=== PATIENT | male | born 1975 | race Caucasian/White ===

== ENCOUNTER → 2018-02-18 | Outpatient (CLI) | payer BC ==
--- NOTE | 2018-02-18 20:11 | US ---
EXAMINATION TYPE: US venous doppler duplex LE BI DATE OF EXAM: 02/18/2018 7:23 PM COMPARISON: NONE CLINICAL HISTORY: R60.0 localized edema. Right leg edema SIDE PERFORMED: Bilateral TECHNIQUE: The lower extremity deep venous system is examined utilizing real time linear array sonog niyah with graded compression, doppler sonography and color-flow sonography. VESSELS IMAGED: External Iliac Vein (EIV) Common Femoral Vein Deep Femoral Vein Greater Saphenous Vein * Femoral Vein Popliteal Vein Small Saphenous Vein * Proximal Calf Veins (* superficial vessels) Right Leg: Negative for DVT Left Leg: Negative for DVT No evidence of DVT bilateral legs. IMPRESSION: Negative exam. No evidence of deep venous thrombosis in both legs.
== END | disposition home or self-care (01) ==
LOC: RADUSMAIN 18:32
PROVIDERS: ATTEND Family Medicine
DX: R60.0 Localized edema (principal)
CPT/HCPCS: 93970

== ENCOUNTER → 2018-06-27 | Outpatient (CLI) | payer BC ==
[2018-06-27 11:13] LABS: ALT 98 U/L (21-72); AST 52 U/L (17-59); Albumin 4.4 g/dL (3.5-5.0); Alkaline Phosphatase 72 U/L (38-126); Anion Gap 8 mmol/L; Blood Urea Nitrogen 17 mg/dL (9-20); Calcium 9.6 mg/dL (8.4-10.2); Carbon Dioxide 26 mmol/L (22-30); Chloride 106 mmol/L (98-107); Cholesterol 228 mg/dL (<200); Glucose 103 mg/dL (74-99); HDL Cholesterol 35 mg/dL (40-60); LDL Cholesterol,Calculated 138 mg/dL (0-99); Potassium 4.7 mmol/L (3.5-5.1); Sodium 140 mmol/L (137-145); Total Bilirubin 1.2 mg/dL (0.2-1.3); Total Protein 7.2 g/dL (6.3-8.2); Triglycerides 274 mg/dL (<150)
== END ==
LOC: LABWHC1 09:35
PROVIDERS: ATTEND Internal Medicine Interventional Cardiology
DX: E78.2 Mixed hyperlipidemia (principal)
CPT/HCPCS: 36415; 80053; 80061

== ENCOUNTER → 2018-07-11 | Outpatient (CLI) | payer BC ==
--- NOTE | 2018-07-11 20:18 | CONS ---
CONSULTATION DATE OF SERVICE: 07/11/2018 This patient is a 43-year-old gentleman who has been evaluated in the sleep center for possible obstructive sleep apnea-hypopnea syndrome. HISTORY OF PRESENT ILLNESS/SLEEP-WAKE EVALUATION: Patient's usual sleep schedule on working days is from 10 p.m. until 3:30 a.m. and on weekends from 11 p.m. until between 5 and 7 a.m. He usually has no problems with falling asleep. No TV in bedroom. He sleeps on the side position with snoring and witnessed episodes of stopped breathing during sleep. Patient wakes up from sleep 3 times with heartburn and sweating and 2 times with nocturia at night. In the morning he wakes up tired, falling asleep during the day. He has a problem with concentration, irritability and episodes of depression. [place] Sleepiness Scale is extremely high at 24. No history of hypnagogic hallucinations, sleep paralysis or cataplexy. PAST MEDICAL HISTORY: Positive for low testosterone level, which was in the range of about 120 mg in October of 2017; acid reflux. PAST SURGICAL HISTORY: 1. Right femur fracture in 2001. 2. Laminectomy at the level L5-S1 in 2008. 3. Status post left-sided neck lipoma removed in 2017. 4. Acid reflux. MEDICATIONS: 1. Fish oil. 2. Testosterone injections every 2 weeks. 3. Prilosec. SOCIAL HISTORY: Positive for smoking up to 2 packs a day; quit in January of 2018. Alcohol consumption occasional. FAMILY HISTORY: Acid reflux, diabetes, cancer. REVIEW OF SYSTEMS: Awakenings from sleep, significant excessive daytime sleepiness, snoring, episodes of stopped breathing during sleep. PHYSICAL EXAMINATION: GENERAL: A pleasant gentleman without distress. VITAL SIGNS: BP 117/74, HR 92, RR 16, height 6 feet 1-1/2 inch, weight 289, body mass index 37.6, temperature 97.2, oxygen saturation 97%. HEENT: PERRLA, EOMI. Evaluation of oropharynx showed tongue protrudes midline. Low position of soft palate. NECK: Supple. No JVD. Thyroid is not palpable. Wide neck; 18-1/2 inches in circumference. LUNGS: Clear to percussion and to auscultation. Good air exchange. No wheezing or rhonchi. HEART: S1, S2 regular. No murmurs, gallops or rubs. ABDOMEN: Obese. EXTREMITIES: No clubbing or cyanosis. FURNACE CLEANER: Awake, alert, and oriented X3. Cranial nerves 2 to 7 intact. There is no fasciculation or atrophy. noted. No focal deficits observed. IMPRESSION: 1. Snoring, witnessed episodes of stopped breathing during sleep, including by anesthesiologist in the hospital during surgery, low position of soft palate, wide neck; obstructive sleep apnea-hypopnea syndrome. 2. Obesity, with body mass index 37.6. 3. Low testosterone level. 4. Acid reflux. 5. Status post right femur fracture in 2001. 6. Status post laminectomy, L5-S1, in 2008. 7. Status post lipoma removed from left side of the neck in 2018. PLAN: 1. Polysomnography for evaluation of patient's breathing during sleep. 2. CPAP/BiPAP titration if sleep study confirms obstructive sleep apnea-hypopnea syndrome. 3. Preferable position during sleep on the side. 4. No driving if patient feels any sleepiness. 5. I will see patient for follow up visit to explain results of testing and following plan. Thank you very much for referring this patient for consultation. Sincerely, Carmelo Marquez MD, PhD, FAASM Diplomat of [employer] Supervisor [facility] [place] MMODL / NICOLÁSN: [id number] /
== END | disposition home or self-care (01) ==
LOC: SLEEP 14:33
PROVIDERS: ATTEND Internal Medicine
DX: Z53.9 Procedure and treatment not carried out, unspecified reason (principal)

== ENCOUNTER → 2018-10-24 | Outpatient (CLI) | payer BC ==
[2018-10-24 16:22] LABS: Albumin 4.3 g/dL (3.80-4.90); Albumin/Globulin Ratio 2.39 (1.60-3.17); Anion Gap 7.7 mmol/L (4.00-12.00); Calcium 9.1 mg/dL (8.7-10.3); Carbon Dioxide 28.3 mmol/L (21.6-31.8); Globulin 1.8 g/dL (1.6-3.3); LDL Cholesterol,Calculated 115.8 mg/dL (0.0-131.0); Potassium 4.5 mmol/L (3.5-5.5); Total Bilirubin 0.8 mg/dL (0.2-1.2); Total Protein 6.1 g/dL (6.2-8.2); VLDL Calculation 47.2 mg/dL (5.00-40.00)
== END | disposition home or self-care (01) ==
LOC: LABWHC1 09:02
PROVIDERS: ATTEND Internal Medicine Interventional Cardiology
DX: E29.1 Testicular hypofunction (principal)
CPT/HCPCS: 36415; 80053; 80061; 82040; 84270; 84403

== ENCOUNTER → 2018-10-29 | Outpatient (CLI) | payer BC ==
--- NOTE | 2018-10-29 11:56 | XR ---
EXAMINATION TYPE: XR shoulder complete LT DATE OF EXAM: 10/29/2018 CLINICAL HISTORY: Left shoulder pain while shoveling with limited range of motion TECHNIQUE: Three views of the left shoulder are obtained. COMPARISON: None. FINDINGS: There is no acute fracture/dislocation evident in the left shoulder. The acromioclavicula r and glenohumeral joint spaces appear within normal limits. Mild acromioclavicular arthropathy is s een on the left with small marginal osteophytes and joint space narrowing. The visualized ribs are in tact and unremarkable. IMPRESSION: There is no acute fracture or dislocation in the left shoulder.
== END | disposition home or self-care (01) ==
LOC: RADXRMAIN 11:27
PROVIDERS: ATTEND Physician Assistant Medical
DX: M25.512 Pain in left shoulder (principal)

== ENCOUNTER → 2018-10-31 | Outpatient (CLI) | payer BC ==
--- NOTE | 2018-10-31 18:00 | PN ---
PROGRESS NOTE DATE OF SERVICE: 10/31/2018 This patient is a 43-year-old gentleman who has been followed in Sleep Center for treatment of obstructive sleep apnea-hypopnea syndrome. Recently the patient had a home sleep apnea test which showed apnea-hypopnea index 17.7 with oxygen desaturation to 77% and then the patient had a CPAP titration. On titration, his respiration was controlled with CPAP pressure of 11 cm of water. Subsequently the patient received his CPAP unit. Today is his first follow-up visit since starting his CPAP. The patient is able to use CPAP equipment every night for the whole night without problems related to mask fitting, pressure or humidification. [place] Sleepiness Scale today is 1 only. I checked his CPAP unit. CPAP pressure of 11 cm of water. Usage is every night; 26/30 nights for more than 4 hours. Average usage is 6.3 hours. Leak is 17 L/minute, which is normal range. Apnea-hypopnea index is only 0.9, which is absolutely perfect. MEDICATIONS: 1. Prilosec. 2. Testosterone. 3. Fish oil. PHYSICAL EXAMINATION: GENERAL: A pleasant patient in no distress. VITAL SIGNS: BP 114/73, HR 88, RR 16, weight 287, temperature 98.3, oxygen saturation at room air 96%. HEENT: PERRLA, EOMI. Evaluation of oropharynx showed tongue protrudes midline. Extremely low position of soft palate. Mallampati IV. NECK: Supple. No JVD. Thyroid is not palpable. LUNGS: Clear to percussion and to auscultation. Good air exchange. No wheezing or rhonchi. HEART: S1, S2 regular. No murmurs, gallops or rubs. ABDOMEN: Slightly obese. EXTREMITIES: No clubbing or cyanosis. CLINICAL PSYCHOLOGY PROFESSOR: Awake, alert, and oriented X3. Cranial nerves 2 to 7 intact. There is no fasciculation or atrophy. noted. No focal deficits observed. IMPRESSION: 1. Moderate obstructive sleep apnea-hypopnea syndrome; apnea-hypopnea index 17.7 with oxygen desaturation to 77%, under full control with CPAP. Patient demonstrated great compliance with treatment, benefitting from treatment. 2. Obesity. 3. Low testosterone level. 4. Acid reflux. 5. Status post right femur fracture in 2001. 6. Status post laminectomy, L5-S1, in 2008. 7. Status post lipoma removed from the neck. PLAN: 1. Patient will continue to use CPAP equipment every night for the whole night. 2. Losing weight. 3. Sleep hygiene with regular time in bed for at least 8 hours. 4. Will maintain all necessary prescriptions for CPAP supplies. 5. No driving if feeling any sleepiness. Thank you very much for allowing me to participate in the management of your patient. Sincerely, Carmelo Marquez MD, PhD, FAASM Diplomat of [employer] [employer] of Internal Medicine Complaint Operator of [facility] [place] MMODL / IJN: [id number] /
== END | disposition home or self-care (01) ==
LOC: SLEEP 14:23
PROVIDERS: ATTEND Internal Medicine
DX: G47.33 Obstructive sleep apnea (adult) (pediatric) (principal); E66.9 Obesity, unspecified; E29.1 Testicular hypofunction; K21.9 Gastro-esophageal reflux disease without esophagitis; Z99.89 Dependence on other enabling machines and devices; Z79.899 Other long term (current) drug therapy; Z87.81 Personal history of (healed) traumatic fracture; Z98.890 Other specified postprocedural states

== ENCOUNTER → 2019-03-18 | Outpatient (CLI) | payer OTHER ==
[2019-03-18 17:52] LABS: T4, Free (Free Thyroxine) 1.2 ng/dL (0.80-1.80)
== END | disposition home or self-care (01) ==
LOC: LABWHC1 08:09
PROVIDERS: ATTEND Internal Medicine
DX: E22.1 Hyperprolactinemia (principal)
CPT/HCPCS: 36415; 82024; 82533; 83001; 83002; 84146; 84305; 84403; 84439; 84443

== ENCOUNTER → 2019-05-13 | Outpatient (CLI) | payer OTHER ==
[2019-05-13 17:42] LABS: Chol/HDL Ratio 5.63; LDL Cholesterol,Calculated 97.8 mg/dL (0.0-131.0); VLDL Calculation 64.2 mg/dL (5.00-40.00)
== END | disposition home or self-care (01) ==
LOC: LABWHC1 06:38
PROVIDERS: ATTEND Internal Medicine Interventional Cardiology
DX: E78.2 Mixed hyperlipidemia (principal)
CPT/HCPCS: 36415; 80061; 84450; 84460

== ENCOUNTER → 2019-08-28 | Outpatient (CLI) | payer OTHER | END | disposition home or self-care (01) | LOC: LABWHC1 10:41 | PROVIDERS: ATTEND Internal Medicine | DX: E22.1 Hyperprolactinemia (principal) | CPT/HCPCS: 36415; 84146 ==

== ENCOUNTER → 2020-06-25 | Outpatient (CLI) | payer BC | END | disposition home or self-care (01) | LOC: LABWHC1 07:09 | PROVIDERS: ATTEND Internal Medicine | DX: E22.1 Hyperprolactinemia (principal) | CPT/HCPCS: 36415; 84146 ==

== ENCOUNTER → 2021-07-13 | Outpatient (CLI) | payer BC ==
--- NOTE | 2021-07-13 17:35 | SFUN ---
SLEEP CENTER FOLLOW UP NOTE DATE OF SERVICE: 07/13/2021 46-year-old gentleman has been followed in Sleep Center for treatment of obstructive sleep apnea-hypopnea syndrome. I did not see patient since October of 2018. The patient continues to use his CPAP equipment every night for the whole night. His nasal pillow mask head gear now is loose. [place] Sleepiness Scale today is 7. I checked his CPAP unit. CPAP pressure is 11 cm of water. old, needs to be changed immediately. For the last month, usage is 24/30 nights and 19/30 nights for more than 4 hours. Leak is 31 L/minute. Apnea-hypopnea index is only 0.4 which is normal. MEDICATIONS: Omeprazole. PHYSICAL EXAMINATION: GENERAL: Patient in no distress. BP 132/78, HR 85, RR 15, height 6 feet 1-1/2 inches, weight 282.4 pounds, temperature 97.4, oxygen saturation at room air 96%. Body mass index 36.7. Extremely low position of soft palate, Mallampati 4. NECK: Supple, no JVD. Thyroid is not palpable. LUNGS: Clear to percussion and to auscultation. Good air exchange. No wheezing or rhonchi. HEART: S1, S2 regular. No murmurs, gallops, or rubs. ABDOMEN: Obese. Soft and nontender. Bowel sounds are present. No organomegaly appreciated. EXTREMITIES: No clubbing or cyanosis. REFERENCE SERVICES HEAD: Awake, alert, and oriented X3. Cranial nerves 2 to 7 intact. There is no fasciculation or atrophy. noted. No focal deficits observed. IMPRESSION: 1. Moderate obstructive sleep apnea-hypopnea syndrome apnea-hypopnea index 17.7. The patient demonstrated borderline compliance with CPAP treatment, benefitting from treatment. Needs to replace his CPAP supplies. 2. Obesity. 3. History of low testosterone level. 4. Acid reflux. 5. Status post right femur fracture in 2001. 6. Status post laminectomy, L5-S1 2008. 7. Status post lipoma removed from the neck. PLAN: 1. I changed the type of the nasal pillows from AirFit P10 to [place] FX medium size. Prescription for all supplies was written and faxed. 2. Patient will continue to use PAP equipment every night for the whole night. 3. Sleep hygiene with regular time in bed for at least 7-1/2 to 8 hours. 4. Precautions related to driving. No driving if feeling sleepiness. 5. I will maintain all necessary prescription for PAP supplies including mask, tube, filters. 6. Watching weight. 7. Follow-up visit in 6 months or earlier if patient has any problems. Carmelo Marquez MD, PhD, FAASM Diplomat of [place] [employer] Specialties Sleep Medicine Board of [place] [employer] of Internal Medicine Revenue Manager of [facility] [place] MMODL / NICOLÁSN: [id number] /
== END ==
LOC: SLEEP 14:18
PROVIDERS: ATTEND Internal Medicine
DX: G47.33 Obstructive sleep apnea (adult) (pediatric) (principal); E66.9 Obesity, unspecified; K21.9 Gastro-esophageal reflux disease without esophagitis; M96.1 Postlaminectomy syndrome, not elsewhere classified; Z87.81 Personal history of (healed) traumatic fracture; Z98.890 Other specified postprocedural states; Z68.36 Body mass index [BMI] 36.0-36.9, adult; Z99.89 Dependence on other enabling machines and devices; Z86.39 Personal history of other endocrine, nutritional and metabolic disease; Z79.899 Other long term (current) drug therapy

== ENCOUNTER → 2021-08-18 | Outpatient (CLI) | payer BC ==
--- NOTE | 2021-08-18 09:15 | NM ---
EXAMINATION TYPE: NM hepatobiliary w EF DATE OF EXAM: 08/18/2021 COMPARISON: NONE HISTORY: R14.0 Abdominal bloating; R10.9 TECHNIQUE: After the intravenous administration of 5.1 mCi Tc 99m Mebrofenin hepatobiliary scintigrap hy is performed. Immediate images post injection. FINDINGS: There is satisfactory initial accumulation of tracer by the liver. The gallbladder is visualized wit hin 12 minutes. The small bowel activity is noted within 60 minutes. At one hour 8 ounces of oral e nsure plus is given to mimic CCK and gallbladder ejection fraction is calculated at 79 %, in the norm al range. Therefore there is no scintigraphic evidence of cystic or common bile duct obstruction to suggest acute cholecystitis or gallbladder dyskinesia. IMPRESSION: Exam is within normal limits.
== END | disposition home or self-care (01) ==
LOC: RADNMMAIN 06:52
PROVIDERS: ATTEND Physician Assistant Medical
DX: R14.0 Abdominal distension (gaseous) (principal); R10.9 Unspecified abdominal pain
CPT/HCPCS: 78226; A9537

== ENCOUNTER → 2021-09-15 | Outpatient (CLI) | payer BC ==
[2021-09-16 06:42] LABS: Gliadin AB IgA, Deaminated NEGATIVE (NEGATIVE); Gliadin AB IgA, Unit 0.3 U/mL; Gliadin AB IgG, Deaminated NEGATIVE (NEGATIVE)
== END | disposition home or self-care (01) ==
LOC: LABWHC1 15:33
PROVIDERS: ATTEND Nurse Practitioner
DX: K21.9 Gastro-esophageal reflux disease without esophagitis (principal); R14.0 Abdominal distension (gaseous); R63.5 Abnormal weight gain; Z83.79 Family history of other diseases of the digestive system
CPT/HCPCS: 36415; 82784; 83516; 86255

== ENCOUNTER → 2022-01-11 | Outpatient (CLI) | payer BC ==
--- NOTE | 2022-01-11 22:12 | SFUN ---
SLEEP CENTER FOLLOW UP NOTE DATE OF SERVICE: 01/11/2022 46-year-old gentleman has been followed in Sleep Center for treatment of obstructive sleep apnea-hypopnea syndrome. Patient continues to use his CPAP equipment every night. Feels now less comfortable as before with the nasal mask. Prefer to go back to nasal pillow mask. [place] Sleepiness Scale is 6, which is normal. I checked his CPAP unit, pressure is 11 cm of water, usage nights 19/ nights for more than 4 hours, average 4.7 hours per night. The patient explained that he sleeps quite short amount of hours. Leak is slightly high at 38 L/minutes but apnea- hypopnea index is totally perfect only 0.5. MEDICATIONS: Omeprazole. PHYSICAL EXAMINATION: GENERAL: Patient in no distress. BP 125/85, HR 82, RR 16, weight 293.4 pounds, temperature 97.4, height 6 feet and 1-1/2 inch. Oxygen saturation at room air 99%. HEENT: PERRLA, EOMI, evaluation of oropharynx showed tongue protrudes midline. NECK: Supple, no JVD. Thyroid is not palpable. LUNGS: Clear to percussion and to auscultation. Good air exchange. No wheezing or rhonchi. HEART: S1, S2 regular. No murmurs, gallops, or rubs. ABDOMEN: Obese. Soft and nontender. Bowel sounds are present. No organomegaly appreciated. EXTREMITIES: No clubbing or cyanosis. PLATFORM CONSULTANT: Awake, alert, and oriented X3. Cranial nerves 2 to 7 intact. There is no fasciculation or atrophy. noted. No focal deficits observed. IMPRESSION: 1. Obstructive sleep apnea-hypopnea syndrome in moderate range. Patient demonstrated good compliance with treatment benefitting from treatment normal respiration on CPAP. 2. History of low testosterone level. 3. Obesity. 4. Acid reflux. 5. Status post right femur fracture in 2001. 6. Status post laminectomy, L5-S1 2008. 7. Status post lipoma removed from the neck. PLAN: 1. The patient would like to go back to nasal pillow mask. I wrote prescription for AirFit P10 medium size. That is what patient prefers. 2. Patient will continue to use PAP equipment every night for the whole night. 3. Sleep hygiene with regular time in bed for at least 7-1/2 to 8 hours. 4. Precautions related to driving. No driving if feeling sleepiness. 5. I will maintain all necessary prescription for PAP supplies including mask, tube, filters. 6. Watching weight. 7. Follow-up visit in 6 months or earlier if patient has any problems. Thank you very much for allowing me to participate in management of your patient. Sincerely, Carmelo Marquez MD, PhD, FAASM Diplomat of [place] [employer] [employer] Specialties Sleep Medicine Board of [place] Board of Internal Medicine Float Operator of [facility] [place] MMODL / NICOLÁSN: [id number] /
== END ==
LOC: SLEEP 15:41
PROVIDERS: ATTEND Internal Medicine
DX: G47.33 Obstructive sleep apnea (adult) (pediatric) (principal); E66.9 Obesity, unspecified; K21.9 Gastro-esophageal reflux disease without esophagitis; Z98.890 Other specified postprocedural states; Z86.39 Personal history of other endocrine, nutritional and metabolic disease; Z87.81 Personal history of (healed) traumatic fracture; Z99.89 Dependence on other enabling machines and devices

== ENCOUNTER → 2022-08-16 | Outpatient (CLI) | payer BC ==
--- NOTE | 2022-08-16 17:13 | P.PN ---
Subjective DATE: 08/16/2022 FOLLOW UP VISIT. Patient with obstructive sleep apnea hypopnea syndrome return to sleep center for follow-up visit. Information from previous visit have been reviewed. Patient is using PAP equipment every night for the whole night, getting PAP supplies in time. The patient does not have significant problems with the mask, PAP unit and humidification. [place] sleepiness scale is 5, which is normal. I checked information from PAP unit. PAP unit pressure 11 cm H2O. Usage is 83 % for more then 4 hours, average 5.5 hours per night. Leak is 19.9 l/m, which is in acceptable range. Apnea Hypopnea Index is only 0.5, which is normal. MEDICATIONS: None During physical exam: GENERAL: A pleasant patient without any distress. VITAL SIGNS: BP 124/77, HR 87, RR 16 , weight 287.8, temperature 98.2, oxygen saturation at room air 97 % . HEENT: PERRLA, EOMI.low position of soft palate, Mallapati 3 . NECK: Supple. No JVD. LUNGS: Clear to percussion and to auscultation. Good air exchange. No wheezing or rhonchi. HEART: S1, S2 regular. ABDOMEN: Soft and nontender. Obese EXTREMITIES: No clubbing or cyanosis. BLOOD TESTER: Awake, alert, and oriented x3. No focal deficit. Impressions: 1. Obstructive sleep apnea-hypopnea syndrome. Patient demonstrated great compliance with treatment, benefiting from treatment. 2. Obesity, patient lost 6 pounds since previous visit. 3. History of low testosterone level. 4. Acid reflux. 5. Status post right femur fracture in 2001. 6. Status post laminectomy L5-S1 2008. 7. Status post lipoma from the neck area have been removed. Plan: 1. Continue using PAP equipment every night for the whole night. 2. To change air filter at least 1-2 times per month. 3. PAP unit should stay lower then position of the head. 4. Advised patient to remove all remaining water from humidifier canister daily and make it dry after each usage. Refill canister with fresh distilled water before each usage. 5. Sleep hygiene with regular time in bed for at least 8 hours. 6. Precautions related to driving. No driving if feel any sleepiness. 7. I will maintain prescription for PAP supplies including mask, tube, filters. 8. Follow up visit in 6 months or earlier if patient has any problems. 9. Watching and continue losing weight. Thank you very much for allowing me to participate in the management of your patient. Carmelo Marquez MD, PhD, FAASM. Diplomat of [place] Board of Sleep Medicine, Sleep Medicine Board by [place] Board of Internal Medicine Advertising Campaign Manager of [facility] [place]
== END ==
LOC: SLEEP 16:22
PROVIDERS: ATTEND Internal Medicine
DX: G47.33 Obstructive sleep apnea (adult) (pediatric) (principal); K21.9 Gastro-esophageal reflux disease without esophagitis; E66.9 Obesity, unspecified; Z86.39 Personal history of other endocrine, nutritional and metabolic disease; Z87.81 Personal history of (healed) traumatic fracture; Z98.1 Arthrodesis status; Z86.018 Personal history of other benign neoplasm
CPT/HCPCS: 99212

== ENCOUNTER → 2022-11-23 | Outpatient (CLI) | payer BC ==
[2022-11-23 10:56] LABS: Ceruloplasmin 20.4 mg/dL (20.0-60.0)
[2022-11-23 11:02] LABS: Carbon Dioxide 25.8 mmol/L (20.0-27.5); Chloride 104 mmol/L (96-109); Glucose 105 mg/dL (70-110); LDL Cholesterol,Calculated 129.3 mg/dL (0.0-131.0); Potassium 4.4 mmol/L (3.5-5.5); Sodium 139 mmol/L (135-145)
[2022-11-23 11:03] LABS: % Iron Saturation 23.97 (15.00-50.00); ALT 52 U/L (10-49); AST 32 U/L (14-35); Albumin 4.7 g/dL (3.8-4.9); Albumin/Globulin Ratio 2.09 (1.60-3.17); Alkaline Phosphatase 78 U/L (41-126); BUN/Creat Ratio 13.72 Ratio (12.00-20.00); Blood Urea Nitrogen 12.4 mg/dL (9.0-27.0); Calcium 9.3 mg/dL (8.7-10.3); Globulin 2.2 g/dL (1.6-3.3); Iron 86 ug/dL (65-175); Non-African American GFR(CKD) 100.1 (60.0-200.0); Total Protein 6.9 g/dL (6.2-8.2)
[2022-11-23 11:06] LABS: Total Iron Binding Capacity 358 ug/dL (228-460)
== END | disposition home or self-care (01) ==
LOC: LABWHC1 07:56
PROVIDERS: ATTEND Family Medicine
DX: E78.2 Mixed hyperlipidemia (principal); R74.01 Elevation of levels of liver transaminase levels
CPT/HCPCS: 36415; 80053; 80061; 82390; 82728; 83036; 83516; 83540; 83550; 86038

== ENCOUNTER → 2023-02-14 | Outpatient (CLI) | payer BC ==
--- NOTE | 2023-02-14 16:55 | P.PN ---
Subjective DATE: 02/14/2023 FOLLOW UP VISIT. Patient with obstructive sleep apnea hypopnea syndrome return to sleep center for follow-up visit. Information from previous visit have been reviewed. Patient is using PAP equipment every night for the whole night, getting PAP supplies in time. The patient does not have significant problems with the mask, PAP unit and humidification. [place] sleepiness scale is 8, which is normal. I checked information from PAP unit. PAP unit pressure 11 cm H2O. Usage is 83% and 70 % for more then 4 hours, average 5 hours per night. Leak is 14.3 l/m, which is in acceptable range. Apnea Hypopnea Index is 0.5, which is normal. MEDICATIONS: None During physical exam: GENERAL: A pleasant patient without any distress. VITAL SIGNS: BP 121/76, HR 80, RR 16, weight 287.6, temperature 97.5, oxygen saturation at room air 97 % . HEENT: PERRLA, EOMI.low position of soft palate, Mallapati 3. NECK: Supple. No JVD. LUNGS: Clear to percussion and to auscultation. Good air exchange. No wheezing or rhonchi. HEART: S1, S2 regular. ABDOMEN: Soft and nontender. Obese EXTREMITIES: No clubbing or cyanosis. HIGH SCHOOL MUSIC INSTRUCTOR: Awake, alert, and oriented x3. No focal deficit. Impressions: 1. Obstructive sleep apnea-hypopnea syndrome. Patient demonstrated good compliance with treatment, benefiting from treatment. 2. Obesity. 3. Acid reflux. 4. History of low testosterone level. 5. Status post laminectomy L5-S1 in 2008. 6. Status post femur fracture in the past. Plan: 1. Continue using PAP equipment every night for the whole night. 2. To change air filter at least 1-2 times per month. 3. PAP unit should stay lower then position of the head. 4. Advised patient to remove all remaining water from humidifier canister daily and make it dry after each usage. Refill canister with fresh distilled water before each usage. 5. Sleep hygiene with regular time in bed for at least 8 hours. 6. Precautions related to driving. No driving if feel any sleepiness. 7. I will maintain prescription for PAP supplies including mask, tube, filters. 8. Watching and losing weight. 9. Follow up visit in 6 months or earlier if patient has any problems. Thank you very much for allowing me to participate in the management of your patient. Carmelo Marquez MD, PhD, FAASM. Diplomat of [employer] Board of Sleep Medicine, Sleep Medicine Board by [employer] Board of Internal Medicine Cardiographer of [facility] [place]
== END ==
LOC: 3 N SLEEP 16:14
PROVIDERS: ATTEND Internal Medicine
DX: G47.33 Obstructive sleep apnea (adult) (pediatric) (principal); E66.9 Obesity, unspecified; K21.9 Gastro-esophageal reflux disease without esophagitis; Z98.890 Other specified postprocedural states; Z99.89 Dependence on other enabling machines and devices; Z87.820 Personal history of traumatic brain injury; Z86.39 Personal history of other endocrine, nutritional and metabolic disease
CPT/HCPCS: 99212

== ENCOUNTER 2023-05-01 11:50 | Day surgery (SDC) | payer BC ==
[2023-05-01] MEDS ORDERED: LACTATED RINGERS 1,000 ML IV ONE (12:32)
[2023-05-01 12:33] VITALS: TEMP 97.2
[2023-05-01] MEDS ORDERED: LACTATED RINGERS 1,000 ML IV SCH (12:34)
[2023-05-01] MEDS ORDERED: PROPOFOL 10 MG/ML 20 ML VIAL IV ONE (13:00)
--- NOTE | 2023-05-01 13:14 | P.PCN ---
Date of Procedure: 05/01/23 Procedure(s) Performed: BRIEF HISTORY: Patient is a 47-year-old pleasant white male scheduled for an elective colonoscopy as a part of screening for colon cancer. PROCEDURE PERFORMED: Colonoscopy. PREOPERATIVE DIAGNOSIS: Screening for colon cancer. IV sedation per Anesthesia. PROCEDURE: After informed consent was obtained, the patient, was brought into the endoscopy unit. IV sedation was administered by Anesthesia under continuous monitoring. Digital rectal examination was normal. Initially the Olympus CF-160 flexible video colonoscope was then inserted in the rectum, gradually advanced into the cecum without any difficulty. Careful examination was performed as the scope was gradually being withdrawn. Ileocecal valve and the appendiceal orifice were visualized and appeared normal. Prep was excellent. Mucosa of the cecum, ascending colon, transverse colon, descending colon, sigmoid colon, and rectum appeared normal. Retroflexion was performed in the rectum and no lesions were seen. The patient tolerated the procedure well. IMPRESSION: Normal-appearing colon from rectum to cecum with no evidence of colorectal neoplasia RECOMMENDATIONS: Findings of this examination were discussed with the patient as his family.. He was advised to have a repeat screening colonoscopy in 10 years
[2023-05-01 13:20] VITALS: RESP 14
[2023-05-01 13:40] VITALS: BP 122/80; PULSE 75
== END 2023-05-01 14:02 | disposition home or self-care (01) ==
LOC: ORWHC2ENDO 11:50
PROVIDERS: ATTEND Internal Medicine Gastroenterology
DX: Z12.11 Encounter for screening for malignant neoplasm of colon (principal); I10 Essential (primary) hypertension; E78.5 Hyperlipidemia, unspecified; G47.33 Obstructive sleep apnea (adult) (pediatric); Z87.891 Personal history of nicotine dependence; Z79.899 Other long term (current) drug therapy
CPT/HCPCS: 45378; J2704

== ENCOUNTER 2023-07-06 18:20 | Emergency (ER) | payer BC ==
[2023-07-06 18:37] VITALS: RESP 18
--- NOTE | 2023-07-06 20:00 | XR ---
EXAMINATION TYPE: XR ribs RT DATE OF EXAM: 07/06/2023 COMPARISON: Chest x-ray November 03, 2022 HISTORY: Right-sided rib pain. TECHNIQUE: A frontal and oblique images of the right-sided ribs are acquired. FINDINGS: No acute displaced right-sided rib fracture is seen. No suspicious expansile or destructive rib lesion is present. Visualized right lung is clear. Overlying soft tissue is unremarkable. IMPRESSION: Unremarkable study.
--- NOTE | 2023-07-06 20:26 | ED ---
Back Pain HPI - General Source: patient Limitations: no limitations <Jorge Grider - Last Filed: 07/06/23 20:27> <Mitchell Alfonso - Last Filed: 07/07/23 01:46> - General Chief Complaint: Back Pain/Injury Stated Complaint: R rib pain - History of Present Illness Initial Comments: 48-year-old male presents to the ED with a chief complaint of right-sided rib pain. Patient states was sleeping when started to feel this pain. Pain constant nature. Seen at urgent care and advised to present to the ED for further evaluation. (Jorge Grider) - Related Data Home Medications Medication Instructions Recorded Confirmed Atorvastatin Calcium 10 mg PO HS 04/27/23 05/01/23 Cyclobenzaprine [Flexeril] 10 mg PO HS PRN 04/27/23 05/01/23 Previous Rx's Medication Instructions Recorded HYDROcodone/APAP 5-325MG [Winslow 1 tab PO Q6HR PRN #12 tab 07/07/23 5-325] Ibuprofen [Motrin] 600 mg PO Q8HR PRN #24 tab 07/07/23 Allergies Allergy/AdvReac Type Severity Reaction Status Date / Time No Known Allergies Allergy Verified 05/01/23 12:35 Review of Systems ROS Other: All systems not noted in ROS Statement are negative. <Jorge Grider - Last Filed: 07/06/23 20:27> ROS Other: All systems not noted in ROS Statement are negative. <Mitchell Alfonso - Last Filed: 07/07/23 01:46> ROS Statement: Those systems with pertinent positive or pertinent negative responses have been documented in the HPI. Past Medical History Past Medical History: Hyperlipidemia, Sleep Apnea/CPAP/BIPAP Additional Past Medical History / Comment(s): uses cpap, History of Any Multi-Drug Resistant Organisms: None Reported Past Surgical History: Back Surgery, Orthopedic Surgery Additional Past Surgical History / Comment(s): rt femur titanium bhanu 2002. [id number] 2008,fatty tumor from neck 2018 Past Anesthesia/Blood Transfusion Reactions: No Reported Reaction Past Psychological History: No Psychological Hx Reported Smoking Status: Former smoker Past Alcohol Use History: Occasional Past Drug Use History: None Reported <Jorge Grider - Last Filed: 07/06/23 20:27> General Exam Limitations: no limitations General appearance: alert Neck exam: Present: normal inspection Extremities exam: Present: normal inspection Back exam: Present: normal inspection Neurological exam: Present: alert <Jorge Grider - Last Filed: 07/06/23 20:27> Head exam: Present: atraumatic, normocephalic Eye exam: Present: normal appearance ENT exam: Present: normal exam Respiratory exam: Present: normal lung sounds bilaterally, chest wall tenderness (Lipoma over the paraspinal muscles right posterior chest wall). Absent: respiratory distress, wheezes Cardiovascular Exam: Present: regular rate, normal rhythm GI/Abdominal exam: Present: soft. Absent: distended, tenderness, guarding <Mitchell Alfonso - Last Filed: 07/07/23 01:46> Course Vital Signs 07/06/23 07/06/23 18:22 22:32 Temperature 98.6 F 98.6 F Pulse Rate 80 83 Respiratory 18 18 Rate Blood Pressure 145/89 O2 Sat by Pulse 98 97 Oximetry Medical Decision Making <Jorge Grider - Last Filed: 07/06/23 20:27> - Lab Data Result diagrams: 07/06/23 21:06 07/06/23 21:06 <Mitchell Alfonso - Last Filed: 07/07/23 01:46> - Medical Decision Making Quicknote portion performed. Signed Jorge Grider PA-C (Jorge Grider) Was pt. sent in by a medical professional or institution ([facility], STORE PLANNER, urgent care, hospital, or shelter...) When possible be specific @ -No Did you speak to anyone other than the patient for history (EMS, parent, family, police, friend...)? What history was obtained from this source @ -No Did you review nursing and triage notes (agree or disagree)? Why? @ -I reviewed and agree with nursing and triage notes Were old charts reviewed (outside hosp., previous admission, EMS record, old EKG, old radiological studies, urgent care reports/EKG's, shelter records)? Report findings @ -No old charts were reviewed Differential Diagnosis (chest pain, altered mental status, abdominal pain women, abdominal pain men, vaginal bleeding, weakness, fever, dyspnea, syncope, headache, dizziness, GI bleed, back pain, seizure, CVA, palpatations, mental health, musculoskeletal)? @ -[Rib pain, back pain secondary to large lipoma EKG interpreted by me (3pts min.). @ -As above X-rays interpreted by me (1pt min.). @Negative for acute cardiopulmonary findings CT interpreted by me (1pt min.). @ -CT chest and pelvis negative for acute findings, U/S interpreted by me (1pt. min.). @ -None done What testing was considered but not performed or refused? (CT, X-rays, U/S, labs)? Why? @ -None What meds were considered but not given or refused? Why? @ -None Did you discuss the management of the patient with other professionals (professionals i.e. , PA, STORE PLANNER, lab, RT, psych nurse, social work supervisor, rock room worker, teacher, animal control officer, case investigator)? Give summary @ -No Was smoking cessation discussed for >3mins.? @ -No Was critical care preformed (if so, how long)? @ -No Were there social determinants of health that impacted care today? How? (Homelessness, low income, unemployed, alcoholism, drug addiction, transportation, low edu. Level, literacy, decrease access to med. care, half-way, rehab)? @ -No Was there de-escalation of care discussed even if they declined (Discuss DNR or withdrawal of care, Hospice)? DNR status @ -No What co-morbidities impacted this encounter? (DM, HTN, Smoking, COPD, CAD, Cancer, CVA, ARF, Chemo, Hep., AIDS, mental health diagnosis, sleep apnea, mor bid obesity)? @ -None Was patient admitted / discharged? Hospital course, mention meds given and route, prescriptions, significant lab abnormalities, going to OR and other pertinent info. @ -48-year-old male with right-sided flank pain, posterior chest wall pain. He has a large lipoma and has radiating pain from this over the past 3 days. Patient is otherwise well-appearing. EKG is sinus. Laboratory testing unremarkable. CT imaging performed unremarkable. Patient will be prescribed Motrin and Winslow for pain. He has an appointment with his orthopedic surgeon in 5 days. Undiagnosed new problem with uncertain prognosis? @ -No Drug Therapy requiring intensive monitoring for toxicity (Heparin, Nitro, Insulin, Cardizem)? @ -No Were any procedures done? @ -No Diagnosis/symptom? @ -Lipoma, chest wall pain Acute, or Chronic, or Acute on Chronic? @ -[Acute Uncomplicated (without systemic symptoms) or Complicated (systemic symptoms)? @ -default Side effects of treatment? @ -No Exacerbation, Progression, or Severe Exacerbation? @ -No Poses a threat to life or bodily function? How? (Chest pain, USA, CT, pneumonia, PE, COPD, DKA, ARF, appy, cholecystitis, CVA, Diverticulitis, Homicidal, Suicidal, threat to staff... and all critical care pts) @ -No (Mitchell Alfonso) - Lab Data Lab Results 07/06/23 07/06/23 07/06/23 Range/Units 21:06 21:06 21:06 WBC 12.6 H (3.8-10.6) k/uL RBC 5.26 (4.30-5.90) m/uL Hgb 15.6 (13.0-17.5) gm/dL Hct 45.8 (39.0-53.0) % MCV 86.9 (80.0-100.0) fL MCH 29.6 (25.0-35.0) pg MCHC 34.0 (31.0-37.0) g/dL RDW 13.4 (11.5-15.5) % Plt Count 233 (150-450) k/uL MPV 8.2 Neutrophils % 54 % Lymphocytes % 34 % Monocytes % 6 % Eosinophils % 4 % Basophils % 1 % Neutrophils # 6.8 (1.3-7.7) k/uL Lymphocytes # 4.3 (1.0-4.8) k/uL Monocytes # 0.7 (0-1.0) k/uL Eosinophils # 0.5 (0-0.7) k/uL Basophils # 0.1 (0-0.2) k/uL PT 10.0 (10.0-12.5) sec INR 0.9 (<1.2) APTT 25.7 (22.0-30.0) sec D-Dimer 0.36 (<0.60) mg/L FEU Sodium (137-145) mmol/L Potassium (3.5-5.1) mmol/L Chloride (98-107) mmol/L Carbon Dioxide (22-30) mmol/L Anion Gap mmol/L BUN (9-20) mg/dL Creatinine (0.66-1.25) mg/dL Est GFR (CKD-EPI)AfAm (>60 ml/min/1.73 sqM) Est GFR (CKD-EPI)NonAf (>60 ml/min/1.73 sqM) Glucose (74-99) mg/dL Calcium (8.4-10.2) mg/dL Total Bilirubin (0.2-1.3) mg/dL AST (17-59) U/L ALT (4-49) U/L Alkaline Phosphatase (38-126) U/L Troponin I (0.000-0.034) ng/mL Total Protein (6.3-8.2) g/dL Albumin (3.5-5.0) g/dL Urine Color Yellow Urine Appearance Clear (Clear) Urine pH 5.5 (5.0-8.0) Ur Specific [place] 1.025 (1.001-1.035) Urine Protein Negative (Negative) Urine Glucose (UA) Negative (Negative) Urine Ketones Negative (Negative) Urine Blood Negative (Negative) Urine Nitrite Negative (Negative) Urine Bilirubin Negative (Negative) Urine Urobilinogen <2.0 (<2.0) mg/dL Ur Leukocyte Esterase Negative (Negative) 07/06/23 07/06/23 Range/Units 21:06 21:06 WBC (3.8-10.6) k/uL RBC (4.30-5.90) m/uL Hgb (13.0-17.5) gm/dL Hct (39.0-53.0) % MCV (80.0-100.0) fL MCH (25.0-35.0) pg MCHC (31.0-37.0) g/dL RDW (11.5-15.5) % Plt Count (150-450) k/uL MPV Neutrophils % % Lymphocytes % % Monocytes % % Eosinophils % % Basophils % % Neutrophils # (1.3-7.7) k/uL Lymphocytes # (1.0-4.8) k/uL Monocytes # (0-1.0) k/uL Eosinophils # (0-0.7) k/uL Basophils # (0-0.2) k/uL PT (10.0-12.5) sec INR (<1.2) APTT (22.0-30.0) sec D-Dimer (<0.60) mg/L FEU Sodium 141 (137-145) mmol/L Potassium 4.2 (3.5-5.1) mmol/L Chloride 106 (98-107) mmol/L Carbon Dioxide 22 (22-30) mmol/L Anion Gap 13 mmol/L BUN 21 H (9-20) mg/dL Creatinine 0.93 (0.66-1.25) mg/dL Est GFR (CKD-EPI)AfAm >90 (>60 ml/min/1.73 sqM) Est GFR (CKD-EPI)NonAf >90 (>60 ml/min/1.73 sqM) Glucose 105 H (74-99) mg/dL Calcium 9.7 (8.4-10.2) mg/dL Total Bilirubin 1.1 (0.2-1.3) mg/dL AST 35 (17-59) U/L ALT 58 H (4-49) U/L Alkaline Phosphatase 87 (38-126) U/L Troponin I <0.012 (0.000-0.034) ng/mL Total Protein 7.4 (6.3-8.2) g/dL Albumin 4.8 (3.5-5.0) g/dL Urine Color Urine Appearance (Clear) Urine pH (5.0-8.0) Ur Specific [place] (1.001-1.035) Urine Protein (Negative) Urine Glucose (UA) (Negative) Urine Ketones (Negative) Urine Blood (Negative) Urine Nitrite (Negative) Urine Bilirubin (Negative) Urine Urobilinogen (<2.0) mg/dL Ur Leukocyte Esterase (Negative) Disposition <Jorge Grider - Last Filed: 07/06/23 20:27> Is patient prescribed a controlled substance at d/c from ED?: No Time of Disposition: 01:45 <Mitchell Alfonso - Last Filed: 07/07/23 01:46> Clinical Impression: Thoracic back pain, Lipoma Disposition: HOME SELF-CARE Condition: Fair Instructions (If sedation given, give patient instructions): Lipoma (ED) Prescriptions: Ibuprofen [Motrin] 600 mg PO Q8HR PRN #24 tab PRN Reason: Pain HYDROcodone/APAP 5-325MG [Winslow 5-325] 1 tab PO Q6HR PRN #12 tab PRN Reason: Pain Referrals: Kristine Murray MD [Primary Care Provider] - 1-2 days Matti Hall DO [Doctor of Osteopathic Medicine] - 1-2 days
[2023-07-06 21:57] LABS: Basophils # (A) 0.1 k/uL (0-0.2); Basophils % (A) 1 %; Eosinophils # (A) 0.5 k/uL (0-0.7); Eosinophils % (A) 4 %; HCT 45.8 % (39.0-53.0); HGB 15.6 gm/dL (13.0-17.5); Lymphocytes # (A) 4.3 k/uL (1.0-4.8); Lymphocytes % (A) 34 %; MCH 29.6 pg (25.0-35.0); MCV 86.9 fL (80.0-100.0); Mean Platelet Volume 8.2; Monocytes # (A) 0.7 k/uL (0-1.0); Monocytes % (A) 6 %; Neutrophils # (A) 6.8 k/uL (1.3-7.7); Neutrophils % (A) 54 %; Platelet Count 233 k/uL (150-450); RBC 5.26 m/uL (4.30-5.90); RDW 13.4 % (11.5-15.5); WBC 12.6 k/uL (3.8-10.6)
[2023-07-06 22:03] LABS: Appearance,Urine Clear (Clear); Bilirubin,Urine Negative (Negative); Blood,Urine Negative (Negative); Color,Urine Yellow; Glucose,Urine (UA) Negative (Negative); Ketones,Urine Negative (Negative); Nitrite,Urine Negative (Negative); PH, Urine 5.5 (5.0-8.0); Protein,Urine Negative (Negative); Specific Gravity,Urine 1.025 (1.001-1.035); Urobilinogen,Urine <2.0 mg/dL (<2.0)
[2023-07-06 22:04] LABS: Leukocyte Esterase,Urine Negative (Negative)
[2023-07-06 22:13] LABS: ALT 58 U/L (4-49); AST 35 U/L (17-59); African American GFR (CKD) >90 (>60 ml/min/1.73 sqM); Albumin 4.8 g/dL (3.5-5.0); Alkaline Phosphatase 87 U/L (38-126); Anion Gap 13 mmol/L; Blood Urea Nitrogen 21 mg/dL (9-20); Calcium 9.7 mg/dL (8.4-10.2); Carbon Dioxide 22 mmol/L (22-30); Chloride 106 mmol/L (98-107); Glucose 105 mg/dL (74-99); Non-African American GFR(CKD) >90 (>60 ml/min/1.73 sqM); Potassium 4.2 mmol/L (3.5-5.1); Sodium 141 mmol/L (137-145); Total Bilirubin 1.1 mg/dL (0.2-1.3); Total Protein 7.4 g/dL (6.3-8.2)
[2023-07-06] MEDS ORDERED: KETOROLAC 15 MG/ML 1 ML VIAL IVP STA (22:27)
[2023-07-06] MEDS ORDERED: HYDROmorphone 0.5 MG/0.5 ML SYRINGE IVP STA (22:27)
[2023-07-06 23:02] LABS: INR 0.9 (<1.2); Partial Thromboplastin Time 25.7 sec (22.0-30.0)
--- NOTE | 2023-07-07 01:34 | CT ---
ADDENDUM - Added by Ethan Stringer MD on 07/11/2023 8:37 PM (-05:00) Addendum: Correction: In the CT abdomen and pelvis under Bones/joints: The text should read, "There is a right femur bhanu, partially visualized. No acute fracture. No dislocation. " EXAM: CT Chest Without Intravenous Contrast CLINICAL HISTORY: CT Reason: rt posterior chest wall pain and swelling TECHNIQUE: Axial computed tomography images of the chest without intravenous contrast. CTDI is 17.4 mGy and DLP is 1433 mGy-cm. This CT exam was performed using one or more of the following dose reduction techniques: automated exposure control, adjustment of the mA and/or kV according to patient size, and/or use of iterative reconstruction technique. COMPARISON: Chest x-ray from November 03, 2022 and rib series from July 06, 2023 FINDINGS: Lungs: Unremarkable. No mass. No consolidation. Pleural space: Unremarkable. No pneumothorax. No significant effusion. Heart: Unremarkable. No cardiomegaly. No significant pericardial effusion. No significant coronary artery calcifications. Bones/joints: Mild degenerative changes in the lower thoracic spine. No fracture or bone lesion is identified. No dislocation. Soft tissues: Unremarkable. Vasculature: Unremarkable. No thoracic aortic aneurysm. Lymph nodes: Unremarkable. No enlarged lymph nodes. IMPRESSION: No acute findings in the chest. EXAM: CT Abdomen and Pelvis Without Intravenous Contrast CLINICAL HISTORY: CT Reason: rt posterior chest wall pain and swelling TECHNIQUE: Axial computed tomography images of the abdomen and pelvis without intravenous contrast. CTDI is 17.4 mGy and DLP is 1433 mGy-cm. This CT exam was performed using one or more of the following dose reduction techniques: automated exposure control, adjustment of the mA and/or kV according to patient size, and/or use of iterative reconstruction technique. COMPARISON: No relevant prior studies available. FINDINGS: Lung bases: Unremarkable. No mass. No consolidation. ABDOMEN: Liver: Mild fatty infiltration of the liver and hepatomegaly. The liver is enlarged measuring 20 cm craniocaudad. No focal liver lesion is seen. Gallbladder and bile ducts: Unremarkable. No calcified stones. No ductal dilation. Pancreas: Unremarkable. No ductal dilation. Spleen: Unremarkable. No splenomegaly. Adrenals: Unremarkable. No mass. Kidneys and ureters: Unremarkable. No obstructing stones. No hydronephrosis. Stomach and bowel: Unremarkable. No obstruction. No mucosal thickening. PELVIS: Appendix: The appendix is normal. Bowel loops are nondilated. No acute inflammatory changes are seen involving the bowel. Bladder: Unremarkable. No stones. Reproductive: Unremarkable as visualized. ABDOMEN and PELVIS: Intraperitoneal space: Unremarkable. No free air. No significant fluid collection. Bones/joints: There is a right-sided the right femur. No acute fracture. No dislocation. Soft tissues: Unremarkable. Vasculature: Unremarkable. No abdominal aortic aneurysm. Lymph nodes: Unremarkable. No enlarged lymph nodes. IMPRESSION: No acute findings in the abdomen or pelvis.
[2023-07-07] MEDS ORDERED: LORazepam 2 MG/ML INJ IV STA (01:43)
[2023-07-07 02:10] VITALS: BP 116/74; PULSE 88; TEMP 98.2
== END 2023-07-07 02:04 | disposition home or self-care (01) ==
LOC: EC 18:20
DX: M54.6 Pain in thoracic spine (principal); D17.9 Benign lipomatous neoplasm, unspecified; R07.89 Other chest pain; E78.5 Hyperlipidemia, unspecified; Z87.891 Personal history of nicotine dependence; Z79.899 Other long term (current) drug therapy
CPT/HCPCS: 36415; 85379; 80053; 84484; 85025; 85610; 85730; 81003; 71100; 71250; 74176; 99284; 96374; 96375 ×2; J2060; J1885; J1170

== ENCOUNTER → 2023-07-23 | Outpatient (CLI) | payer BC ==
--- NOTE | 2023-07-23 16:44 | XR ---
EXAMINATION TYPE: XR chest 2V DATE OF EXAM: 07/23/2023 4:34 PM CLINICAL INDICATION:Male, 48 years old with history of PRE SURG TESTING; [facility] COMPARISON: Chest radiographs from 07/06/2023 TECHNIQUE: XR chest 2V Frontal and lateral views of the chest. FINDINGS: Lungs/Pleura: There is no evidence of pleural effusion, focal consolidation, or pneumothorax. Pulmonary vascularity: Unremarkable. Heart/mediastinum: Cardiomediastinal silhouette is enlarged and stable. Musculoskeletal: No acute osseous pathology. IMPRESSION: No acute cardiopulmonary disease/process.
[2023-07-23 17:21] LABS: INR 0.9 (<1.2); Partial Thromboplastin Time 23.4 sec (22.0-30.0); Prothrombin Time 10.2 sec (10.0-12.5)
[2023-07-24 03:07] LABS: Blood Urea Nitrogen 17.1 mg/dL (9.0-27.0); Carbon Dioxide 25.9 mmol/L (21.6-31.8); Chloride 100 mmol/L (96-109); Glucose 117 mg/dL (70-110); Potassium 4.4 mmol/L (3.5-5.5); Sodium 138 mmol/L (135-145)
[2023-07-24 03:40] LABS: HCT 45.9 % (39.6-50.0); MCHC 32.7 g/dL (32.0-37.0); MCV 88.6 FL (80.0-97.0); Mean Platelet Volume 10.8 FL (9.5-12.2); NRBC Per 100 WBC 0 X 10*3/uL (0.00-0.01); Platelet Count 238 X 10*3/uL (140-440); RBC 5.18 X 10*6/uL (4.40-5.60); RDW 13.9 % (11.5-14.5); WBC 19.99 X 10*3/uL (4.50-10.00)
[2023-07-24 04:24] LABS: Basophils % (A) 0.5 %; Eosinophils % (A) 0.5 %; Lymphocytes # (A) 4.79 X 10*3/uL (0.90-5.00); Monocytes # (A) 1.57 X 10*3/uL (0.20-1.00); Monocytes % (A) 7.9 %; Neutrophils # (A) 13.27 X 10*3/uL (1.80-7.70); Neutrophils % (A) 66.3 %
[2023-07-24 04:46] LABS: Appearance,Urine Clear (Clear); Bilirubin,Urine Negative (Negative); Blood,Urine Negative (Negative); Color,Urine Yellow (Yellow); Ketones,Urine Negative (Negative); Nitrite,Urine Negative (Negative); PH, Urine 6.5; Specific Gravity,Urine 1.013 (1.001-1.030); Urobilinogen,Urine 0.2 E.U./DL
== END | disposition home or self-care (01) ==
LOC: LABPAT 15:44
PROVIDERS: ATTEND Orthopaedic Surgery Orthopaedic Surgery of the Spine
DX: Z01.818 Encounter for other preprocedural examination (principal); R94.31 Abnormal electrocardiogram [ECG] [EKG]
CPT/HCPCS: 71046; 80048; 81003; 85025; 85610; 85730; 87070; 93005

== ENCOUNTER 2023-08-08 09:54 | Observation (INO) | payer BC ==
[2023-07-31 11:24] VITALS: BMI 36.6
[~2023-08-08 09:54] MED LIST: HYDROmorphone 0.5 MG/0.5 ML SYRINGE IVP PRN; LIDOCAINE 1% (10MG/ML) FOR IV START INTRADERMA PRN; ONDANSETRON 4 MG/2 ML VIAL IVP ONE; Pre Op ABX Message 1 EACH MISC MISCELLANE ONE; ceFAZolin 1,000 MG in SODIUM CHLORIDE 0.9% IRRIGATIO 1,000 ML IRRIGATION PRN
[2023-08-08] MEDS: LACTATED RINGERS 1,000 ML IV SCH (10:26)
[2023-08-08 10:38] LABS: Glucose,Whole Blood 116 mg/dL (70-110)
[2023-08-08] MEDS ORDERED: NEOSTIGMINE 1 MG/ML 10 ML VIAL ONE (11:42)
[2023-08-08] MEDS ORDERED: ceFAZolin 1,000 MG VIAL ONE (11:42)
[2023-08-08] MEDS ORDERED: LIDOCAINE 1% INJ 10MG/ML (20 ML MDV) ONE (11:42)
[2023-08-08] MEDS ORDERED: MIDAZOLAM 2 MG/2 ML VIAL ONE (11:42)
[2023-08-08] MEDS ORDERED: HYDROmorphone (PF) 1 MG/ML ONE (11:42)
[2023-08-08] MEDS ORDERED: fentaNYL (PF) 50 MCG/ML 2 ML AMP ONE (11:42)
[2023-08-08] MEDS ORDERED: KETOROLAC 15 MG/ML 1 ML VIAL ONE (11:42)
[2023-08-08] MEDS ORDERED: SUCCINYLCHOLINE CHLORIDE 200 MG/10 ML VIAL IV ONE (11:42)
[2023-08-08] MEDS ORDERED: GLYCOPYRROLATE 0.2 MG/ML 2 ML VIAL ONE (11:42)
[2023-08-08] MEDS ORDERED: PROPOFOL 10 MG/ML 20 ML VIAL IV ONE (11:42)
[2023-08-08] MEDS ORDERED: ROCURONIUM 10 MG/ML (5 ML VIAL) IV ONE (11:42)
[2023-08-08] MEDS ORDERED: SODIUM CHLORIDE 0.9% 100 ML BAG ONE (11:42)
[2023-08-08] MEDS ORDERED: LIDOCAINE 0.5%-EPI 1:200,000 50 ML VIAL SQ ONE (12:26)
[2023-08-08] MEDS ORDERED: BENZOCAINE/MENTHOL LOZENG 1 EACH LOZENGE MUCOUS MEM PRN (13:04)
[2023-08-08] MEDS ORDERED: HYDROmorphone 0.5 MG/0.5 ML SYRINGE IVP PRN (13:04)
[2023-08-08] MEDS ORDERED: HYDROmorphone 1 MG/ML 1 ML SYRINGE IVP PRN (13:04)
[2023-08-08] MEDS ORDERED: diazePAM 5 MG TAB PO PRN (13:04)
[2023-08-08] MEDS ORDERED: ONDANSETRON 4 MG/2 ML VIAL IVP PRN (13:05)
--- NOTE | 2023-08-08 13:16 | P.OP ---
Date of Procedure: 08/08/23 Preoperative Diagnosis: Large subcutaneous painful lipoma at thoracodorsal spine Postoperative Diagnosis: Same, without evidence of expansion deep to the fascia or musculature Anesthesia: GETA Pathology: other (Subcutaneous mass, presumed lipoma sent to pathology measuring 6 x 7 x 4 cm) Condition: stable Disposition: PACU Description of Procedure: BRIEF OPERATIVE NOTE Preoperative Diagnosis:Large subcutaneous painful lipoma at thoracodorsal spine Postoperative Diagnosis: Same without evidence of expansion to the muscle or through the fascia Procedure: Excision of large subcutaneous lipoma at the thoracic lumbar spine Surgeon: Dr. Hall Inspector Optical Instrument: Gomez Neves is present throughout the entire the case persistence during positioning, dissection, exposure, visualization, and all crucial elements of the case as well as closure. Anesthesia: General anesthesia per Dr. Min Estimated blood loss: Less than 20 mL Complications: None apparent Components implanted: None Specimen: 6 cm x 7 cm x 4 cm mass presumed lipoma sent to pathology Disposition: To recovery room in good stable condition. OPERATIVE INDICATIONS The patient has been having issues in their lower back for a number of years but has been worsening over the past several months. The patient has been through conservative treatment. He has had issues with a mass at his back over the past several years but feels that it has enlarged over the past few months. It has become painful over the right upper lumbar spine for him. He has tried conservative treatment and therapy without any benefit. He feels that masses palpable and it gives him pain with any sort of pressure and with activities. We had a number of imaging tests and evaluations. MRIs showed subcutaneous lipoma without extension into the deep musculature or fascia or without bony involvement. There did not appear to be obvious breakdown within the lipoma itself. The patient has a number of different family history cancers and was having significant pain at his back with pressure over the lipoma. He was interested in having it removed and I felt that this was reasonable given its excessive size and possibility of degeneration. We planned for open excision of the substance mass/lipoma in the operating room. We discussed various treatment options including surgery, and the patient wishes to proceed with surgery We discussed the risk, patient's alternatives and benefits of surgery including but not limited to, risk of bleeding risk of infection, risk of need for further surgery, risk of decreased, loss of motion, loss of function, nerve damage, paralysis, heart attack, blindness and . OPERATIVE SUMMARY After discussing all the risks, patient alternatives and benefits at length, the patient elected to proceed with surgical intervention, signed informed consent, and presented for their procedure. The patient was seen and examined in the preoperative holding area and the surgical site was marked. The patient was given antibiotics and brought to the operating room. The patient was sedated and intubated by anesthesia in standard fashion. The patient was positioned on to the operating room table in a prone position on the appropriate frame which was well-padded and well molded. We were careful to pad any bony prominences and pressure points. We were careful to maintain the patient's cervical spine and good neutral alignment and position throughout. The patient was prepped and draped in a normal standard fashion. An appropriate timeout and keystone protocol performed. We were able to proceed with the surgery. The mass was easily palpable near the midline and just to the right upper lumbar spine which correlated well with the image studies. The local wound area at the midline approximately 4 cm was infiltrated with local anesthetic. An incision was made at the midline longitudinally over the appropriate levels around T12 L2 levels approximately 67 m in length. Dissection was taken down subcutaneously. The encapsulated area of lipoma was easily identified. A crossed over the midline and extended to the right at the Vertebrals. I was able to dissect approximately one and half centimeters deep to the subcutaneous tissue and around the superficial aspect of the lipoma laterally to the right inferiorly and cephalad. It was in Late and I was able to dissect it out discretely. I was able to dissect down to the layer of the fascia and remove it from the fascial layer itself. It did not seem to cross or invade into the fascia itself. A large fragment of lipoma was removed and passed off. It measured approximately 6 x 7 x 4 cm in size. There were some other smaller parts just lateral to inferior and cephalad which were removed as well. These were added to be passed off for pathologic specimen. There was good hemostasis noted. There is no evidence of involvement into the deep tissue or into the bone or fascia. The muscle appeared to be stable. There are no further masses. The wound was irrigated and suctioned dry and we prepared for closure. I placed a deep drain at the space in the area. I try to close some of the space with 2-0 Vicryl. The subcuticular tissue was closed with absorbable suture. The wound was cleaned and dried and dressed with the appropriate dressing around the drain. The drapes were broken down. The patient was gently rolled back onto their hospital bed being careful to maintain their cervical spine and good neutral alignment and position. They were woken up by anesthesia, extubated, and brought to the recovery room in good stable condition. The patient will be admitted to the hospital for observation and for appropriate postoperative care, medical management and monitoring. We will continue to follow them closely about the postoperative course.
[2023-08-08] MEDS: SODIUM CHLORIDE 0.9% 1,000 ML IV SCH (14:37)
[2023-08-08] MEDS: CYCLOBENZAPRINE 10 MG TAB PO PRN (16:30)
[2023-08-08] MEDS: HYDROcodone/APAP 5-325MG 1 EACH TAB PO PRN (19:41)
[2023-08-08] MEDS: ceFAZolin 3 GM in SODIUM CHLORIDE 0.9% 100 ML IVPB SCH (22:07)
[2023-08-09] MEDS: LACTATED RINGERS 1,000 ML IV SCH (00:33)
[2023-08-09] MEDS: SODIUM CHLORIDE 0.9% 1,000 ML IV SCH ×2 (00:33→15:52)
[2023-08-09] MEDS: HYDROcodone/APAP 5-325MG 1 EACH TAB PO PRN ×5 (02:46→20:26)
[2023-08-09] MEDS: ceFAZolin 3 GM in SODIUM CHLORIDE 0.9% 100 ML IVPB SCH (05:31)
--- NOTE | 2023-08-09 09:10 | P.PN ---
Progress Note - Text Progress Note Date: 08/09/23 Postoperative day #1 Patient is seen and examined today at bedside. The patient has some pain around the surgical site as expected. Pain is being controlled with medication. The drain is still intact. Yesterday evening there is 60 mL out and there is at least 60 mL about this morning of bloody serous fluid. There is no purulence. He denies any fevers chills. He had some nausea initially but that has resolved. His tolerating site well Physical Exam Afebrile with stable vital signs Abdomen is soft nontender. Chest has good excursion deep and space expiration The incision site is clean dry and intact. No erythema there is no purulence. The dressing and the drain are intact Extremities have not had neurologic change from prior to surgery. Calves and thighs were soft nontender without evidence of DVT. Assessment/Plan Postoperative day #1 status post excision of soft tissue mass presumed lipoma at his back Continue drainage at the wound site Patient is progressing as expected from the surgery. There is still a good amount of drainage from the site has the removal of the mass produced had space which is likely to continue to drain. As the drainage slows down we will continue consider pulling the drain. If there is still significant drainage we may keep him overnight again with the drain before pulling it in the morning. I discussed this with him and his and they understand. I will check on him again later this afternoon and have further decision on that. After his next dose of scheduled prophylactic antibiotics, we can discontinue the IV We will continue pain control with oral or IV medications. We'll continue to follow patient closely.
[2023-08-09] MEDS: SENNOSIDES-DOCUSATE SODIUM 1 EACH TAB PO SCH (09:38)
[2023-08-09] MEDS: CYCLOBENZAPRINE 10 MG TAB PO PRN ×2 (09:52→18:54)
[2023-08-09] MEDS ORDERED: ceFAZolin 3 GM in SODIUM CHLORIDE 0.9% 100 ML IVPB ONE (13:00)
[2023-08-09 20:56] VITALS: RESP 18
[2023-08-10 03:24] VITALS: PULSE 81
[2023-08-10] MEDS: HYDROcodone/APAP 5-325MG 1 EACH TAB PO PRN ×2 (06:26→10:01)
[2023-08-10] MEDS: SENNOSIDES-DOCUSATE SODIUM 1 EACH TAB PO SCH (07:47)
[2023-08-10 08:03] VITALS: BP 132/86; TEMP 97.4
--- NOTE | 2023-08-10 08:12 | P.DS ---
Providers Date of admission: 08/08/23 Attending physician: Matti Hall Primary care physician: [facility] Hospital Course: The patient presented on the day of admission as per their operative note. He had a large lipoma at the right side of his lower back which is causing him pain and had increased and some size. After further evaluation he decided to have it removed and we did an excision on Sunday as per his operative note. He is making good progress postoperatively and monitoring L wound drainage closely. His pains been controlled well and his mobilization improved. Physical Exam The incision site is clean dry and intact. There is no erythema. The drainage is consistently decreasing into the JOSE drain. There is only 25 mL overnight. There is no purulence no evidence of infection. Abdomen soft and nontender. Chest has good excursion with deep inspiration and expiration. The patient has active and passive range of motion intact at the upper and lower extremities. There is no acute change in neurologic status. Hospital Course Postoperative day #2 status post excision of lipoma from the thoracolumbar spine dorsally at the subcutaneous space We are still awaiting final pathologic results. The patient has been making good progress postoperatively. The drainage is consistently declining as to expect. The wound looks good without any active drainage at the incision site. There is no erythema or evidence of any infection. There is no fluctuant mass. I think the patient is progressing well and his surgical site seems to be healing appropriately. They have completed the prophylactic antibiotics without any signs or symptoms of infection. The patient has been able to advance their diet, and is tolerating diet adequately. The pain was initially controlled with IV medications and is now controlled appropriately with oral medications. The patient has been able to increase their mobilization. The patient has progressed appropriately. I think they are in good stable condition for discharge today. They will be sent home with appropriate prescriptions. I answered their questions to the best of my ability in a language that they can understand and they are agreeable with the plan. They will follow up as directed on Sunday in 2 days. Patient Condition at Discharge: Good Plan - Discharge Summary Discharge Rx Participant: Yes New Discharge Prescriptions: New Cephalexin [Keflex] 500 mg PO Q6HR 1 Days #12 cap HYDROcodone/APAP 5-325MG [[place] 5-325] 1 tab PO Q6HR PRN 3 Days #12 tab PRN Reason: Pain No Action Atorvastatin Calcium 10 mg PO HS Muscle Relaxant(Unknown Name) 1 dose PO DIRECTED PRN PRN Reason: Pain Multivitamin [Multivitamins Adult Gummies] 1 each PO DAILY Ibuprofen [Motrin] 600 mg PO DIRECTED PRN PRN Reason: Pain Discharge Medication List Atorvastatin Calcium 10 mg PO HS 04/27/23 [History] Ibuprofen [Motrin] 600 mg PO DIRECTED PRN 07/31/23 [History] Multivitamin [Multivitamins Adult Gummies] 1 each PO DAILY 07/31/23 [History] Muscle Relaxant(Unknown Name) 1 dose PO DIRECTED PRN 07/31/23 [History] Cephalexin [Keflex] 500 mg PO Q6HR 1 Days #12 cap 08/10/23 [Rx] HYDROcodone/APAP 5-325MG [[place] 5-325] 1 tab PO Q6HR PRN 3 Days #12 tab 08/10/23 [Rx] Follow up Appointment(s)/Referral(s): Matti Hall, [Doctor of Osteopathic Medicine] - 08/13/23 (Please call office for appointment for August 13) Activity/Diet/Wound Care/Special Instructions: Keep site clean. After 72 hours postoperatively, patient May remove dressing, and if it is dry without any drainage, then may shower with area uncovered. Leave glue intact and allow it to fray off on its own. May ambulate as tolerated. Avoid heavy or rigorous activity. No repetitive bending twisting or lifting. No overhead work. Discharge Disposition: HOME SELF-CARE
[2023-08-10] MEDS: SODIUM CHLORIDE 0.9% 1,000 ML IV SCH (09:05)
[2023-08-10] MEDS: LACTATED RINGERS 1,000 ML IV SCH (09:05)
== END 2023-08-10 10:48 | disposition home or self-care (01) ==
LOC: OR 09:54 → 4SSUR 10:20 → OR 12:44 → UNDOADMOB 08-10 07:43 → 4SSUR 08-10 07:43 → OR 08-10 07:43 → 4SSUR 08-10 07:43 → UNDODISOB 08-10 10:48
PROVIDERS: ADMIT Orthopaedic Surgery Orthopaedic Surgery of the Spine; ATTEND Orthopaedic Surgery Orthopaedic Surgery of the Spine
DX: D17.1 Benign lipomatous neoplasm of skin and subcutaneous tissue of trunk (principal); E78.5 Hyperlipidemia, unspecified; Z87.891 Personal history of nicotine dependence; Z79.899 Other long term (current) drug therapy
CPT/HCPCS: 21933; 96376; 96365; 96366; 96375; 99285; 97161; 88304; G0378; J2250; J0330; J2710; J0690 ×3; J2405; J2001; J3010; J1170; J1885; J2704; 96367; 96372

== ENCOUNTER → 2023-08-22 | Outpatient (CLI) | payer BC ==
--- NOTE | 2023-08-22 17:04 | P.PN ---
Subjective DATE: 08/22/2023 FOLLOW UP VISIT. Patient with obstructive sleep apnea hypopnea syndrome return to sleep center for follow-up visit. Information from previous visit have been reviewed. Patient is using PAP equipment every night for the whole night, getting PAP supplies in time. The patient does not have significant problems with the mask, PAP unit and humidification. [place] sleepiness scale is borderline 9. I checked information from PAP unit. PAP unit pressure 11 cm H2O. Usage is 97% and 90 % for more then 4 hours, average 6.2 hours per night. Leak is 13.6 l/m, which is in acceptable range. Apnea Hypopnea Index is 0.5, which is normal. MEDICATIONS:1. Medication for cholesterol 10 mg once a day, patient does not remember the name of medication During physical exam: GENERAL: A pleasant patient without any distress. VITAL SIGNS: BP 136/84, HR 86, RR 18 , weight 296.4, temperature 98.0, oxygen saturation at room air 96 % . HEENT: PERRLA, EOMI.low position of soft palate, Mallapati 3 . NECK: Supple. No JVD. LUNGS: Clear to percussion and to auscultation. Good air exchange. No wheezing or rhonchi. HEART: S1, S2 regular. ABDOMEN: Soft and nontender. Slightly obese EXTREMITIES: No clubbing or cyanosis. BAR TENDER: Awake, alert, and oriented x3. No focal deficit. Impressions: 1. Obstructive sleep apnea-hypopnea syndrome. Patient demonstrated great compliance with treatment, benefiting from treatment. 2. Obesity. 3. Hyperlipidemia. 4. History of low testosterone level. 5. Status post laminectomy L5-S1. Plan: 1. Continue using PAP equipment every night for the whole night. 2. To change air filter at least 1-2 times per month. 3. PAP unit should stay lower then position of the head. 4. Advised patient to remove all remaining water from humidifier canister daily and make it dry after each usage. Refill canister with fresh distilled water before each usage. 5. Sleep hygiene with regular time in bed for at least 8 hours. 6. Precautions related to driving. No driving if feel any sleepiness. 7. I will maintain prescription for PAP supplies including mask, tube, filters. 8. Follow up visit in 6 months or earlier if patient has any problems. 9. Watching and losing weight. Thank you very much for allowing me to participate in the management of your patient. Carmelo Marquez MD, PhD, FAASM. Diplomat of [employer], Sleep Medicine Board by [employer] [place] [employer] Supervisor of [facility] [place]
== END ==
LOC: 3 N SLEEP 16:09
PROVIDERS: ATTEND Internal Medicine
DX: G47.33 Obstructive sleep apnea (adult) (pediatric) (principal); E66.9 Obesity, unspecified; E78.5 Hyperlipidemia, unspecified; M96.1 Postlaminectomy syndrome, not elsewhere classified; Z98.890 Other specified postprocedural states
CPT/HCPCS: 99212

== ENCOUNTER → 2024-03-22 | Outpatient (CLI) | payer BC ==
[2024-03-22 13:08] LABS: Basophils # (A) 0.07 X 10*3/uL (0.00-0.10); Basophils % (A) 0.6 %; Eosinophils # (A) 0.38 X 10*3/uL (0.04-0.35); Eosinophils % (A) 3.5 %; HCT 43.6 % (39.6-50.0); HGB 14.4 g/dL (13.0-17.0); Lymphocytes # (A) 3.93 X 10*3/uL (0.90-5.00); Lymphocytes % (A) 35.9 %; MCH 28.9 pg (27.0-32.0); MCV 87.4 FL (80.0-97.0); Mean Platelet Volume 11.1 FL (9.5-12.2); Monocytes # (A) 0.87 X 10*3/uL (0.20-1.00); Monocytes % (A) 7.9 %; NRBC Per 100 WBC 0 X 10*3/uL (0.00-0.01); Neutrophils # (A) 5.67 X 10*3/uL (1.80-7.70); Neutrophils % (A) 51.7 %; Platelet Count 210 X 10*3/uL (140-440); RBC 4.99 X 10*6/uL (4.40-5.60); RDW 13.8 % (11.5-14.5); WBC 10.96 X 10*3/uL (4.50-10.00)
[2024-03-22 13:30] LABS: ALT 56 U/L (10-49); AST 33 U/L (14-35); Albumin 4.4 g/dL (3.8-4.9); Alkaline Phosphatase 91 U/L (41-126); BUN/Creat Ratio 23.22 Ratio (12.00-20.00); Blood Urea Nitrogen 20.9 mg/dL (9.0-27.0); Calcium 8.8 mg/dL (8.7-10.3); Carbon Dioxide 22.5 mmol/L (21.6-31.8); Chloride 108 mmol/L (96-109); Chol/HDL Ratio 5.93 Ratio; Globulin 2.1 g/dL (1.6-3.3); Glucose 146 mg/dL (70-110); LDL Cholesterol,Calculated 138.4 mg/dL (0.0-131.0); Potassium 4.2 mmol/L (3.5-5.5); Prostate Specific Antigen 0.54 ng/mL (0.000-2.500); Sodium 141 mmol/L (135-145); Total Bilirubin 0.6 mg/dL (0.3-1.2); Total Protein 6.5 g/dL (6.2-8.2); Uric Acid 6.2 mg/dL (3.7-8.7)
== END | disposition home or self-care (01) ==
LOC: LABWHC1 08:11
PROVIDERS: ATTEND Family Medicine
DX: E78.2 Mixed hyperlipidemia (principal); L75.1 Chromhidrosis; R63.5 Abnormal weight gain; R73.03 Prediabetes
CPT/HCPCS: 36415; 80053; 80061; 82024; 82533; 83036; 83835; 84153; 84402; 84403; 84443; 84550; 85025

== ENCOUNTER → 2024-04-23 | Outpatient (CLI) | payer BC | LOC: 3 N SLEEP 16:10 | PROVIDERS: ATTEND Internal Medicine | CPT/HCPCS: 99212 ==

== ENCOUNTER → 2025-02-26 | Outpatient (CLI) | payer BC | END | disposition home or self-care (01) | LOC: LABWHC1 14:33 | PROVIDERS: ATTEND Internal Medicine Endocrinology, Diabetes & Metabolism | DX: E83.51 Hypocalcemia (principal) | CPT/HCPCS: 36415; 82310; 83970 ==

== ENCOUNTER → 2025-03-14 | Outpatient (CLI) | payer BC ==
[2025-03-14 10:45] LABS: T4, Free (Free Thyroxine) <0.07 ng/dL (0.78-2.19)
== END | disposition home or self-care (01) ==
LOC: LABWHC1 09:04
DX: C73 Malignant neoplasm of thyroid gland (principal)
CPT/HCPCS: 36415; 84432; 84439; 84443